=== PATIENT | male | born 1995 | race Caucasian/White ===

== ENCOUNTER 2017-01-09 09:39 | Emergency (ER) | payer MEDICAID ==
[~2017-01-09] VITALS: Ht 182.9 cm; Wt 74.5 kg
[~2017-01-09 09:39] MED LIST: BUPR100T6 PO
[2017-01-09] MEDS ORDERED: SODIUM CHLORIDE 0.9% 1,000 ML IV ONE (10:14)
[2017-01-09] MEDS ORDERED: SODIUM CHLORIDE 0.9% 1,000ML IVBOLUS ONE (10:30)
[2017-01-09] MEDS ORDERED: ONDANSETRON 2MG/ML, 2ML IVPush ONE (10:30)
[2017-01-09] MEDS ORDERED: SODIUM CHLORIDE FLUSH 10ML SYR IVF ONE (10:30)
[2017-01-09] MEDS ORDERED: ONDANSETRON 2MG/ML, 2ML ONE (10:35)
[2017-01-09 11:04] LABS: HEMATOCRIT 52.5 % (39.2-51.8); WHITE BLOOD COUNT 4.1 x10^3/uL (4.5-13.2)
[2017-01-09 11:12] LABS: ASPARTATE AMINO TRANSFERASE 30 U/L (15-37); BLOOD UREA NITROGEN 14 mg/dL (7-18)
[2017-01-09 12:41] VITALS: BP 128/59
== END 2017-01-09 14:17 | disposition home or self-care (01) ==
LOC: ED 10:32
DX: K52.9 Noninfective gastroenteritis and colitis, unspecified (principal); F17.200 Nicotine dependence, unspecified, uncomplicated
CPT/HCPCS: 36415; 74022; 80053; 81001; 83690; 85025; 87324; 89055; 96361; 96374; 99285; J2405; J7030